=== PATIENT | female | born 1955 | race Hispanic/Latino ===

== ENCOUNTER 2018-08-07 13:03 | Outpatient (CLI) | payer BC ==
--- NOTE | 2018-08-08 09:12 | Magnetic Resonance Report ---
BILATERAL BREAST MRI WITHOUT AND WITH CONTRAST: 08/07/18 13:03:00 CLINICAL: Newly diagnosed left breast cancer. Status post needle biopsy on 07/17/18 at [facility]. 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 COMPARISON:Mammograms and ultrasound from [facility]. TECHNIQUE: Axial 1.0-mm T1 without, axial high resolution 2.0-mm T2 and axial 1.0-mm dynamic Vibrant high-resolution postcontrast T1 fat saturation sequences on a 1.5 Manda magnet. The examination was performed with an 8 channel dedicated [place] breast coil. Post processing with CAD and subtraction was performed on an [employer] Plus workstation. 16.0 cc of Multihance was injected without incident for the contrast portion of the exam. Consent was obtained prior to the administration of the contrast. FINDINGS: Right: Minimal background parenchymal enhancement. No mass or suspicious enhancement. No suspicious lymph nodes. Left: Minimal background parenchymal enhancement. The known cancer is an irregular spiculated enhancing mass at 3 o'clock 6.0 cm from the nipple and 6.6 cm from the chest wall. It measures 2.1 x 1.6 x 1.3 cm and demonstrates heterogeneous enhancement with mixed kinetics, 226% peak enhancement, 54% type I persistent, 38% type II plateau and 8% type III washout waveforms. A second suspicious mass is located slightly lateral and posterior within 1 cm of the cancer and there is a linear nonenhancing band of tissue connecting it with the cancer. Lesion 2 measures 3.9 x 1.9 x 1.4 mm and demonstrates a similar enhancement pattern to the cancer. Lesion 3 is a focus of non-Mass enhancement at 3 o'clock 1.9 cm from the nipple and 10.7 cm from the chest wall. It is located approximately 3.5 cm anterior to the cancer within a band of nonenhancing tissue that runs from the cancer to the nipple. No other mass or suspicious enhancement. No suspicious left axillary or left internal mammary lymph nodes. IMPRESSION: 1. A 2.1 cm known left breast cancer at 3 o'clock and 2 additional suspicious lesions as described above. Both of these lesions are too small to biopsy with MRI. Recommend targeted ultrasound to determine if these lesions could be sampled using ultrasound guidance. 2. Negative right breast. 3. No suspicious lymph nodes. RIGHT BI-RADS 1 - - Negative LEFT BI-RADS 6 -- Known Cancer
== END 2018-08-07 13:04 | disposition home or self-care (01) ==
LOC: SPVIMAG 13:03
PROVIDERS: ATTEND Surgery
DX: C50.412 Malignant neoplasm of upper-outer quadrant of left female breast (principal)
CPT/HCPCS: A9577; C8908; 77049

== ENCOUNTER 2018-08-28 14:12 | Outpatient (CLI) | payer BC ==
--- NOTE | 2018-08-28 16:06 | Ultrasound Report ---
TARGETED LEFT BREAST ULTRASOUND: 08/28/18 14:12:00 CLINICAL: Known left breast cancer in 2 additional suspicious lesions on recent MRI. COMPARISON: 08/07/18 MRI FINDINGS: Ultrasound of the left breast fail to demonstrate additional lesions to correlate with the MRI findings. IMPRESSION: Known left breast cancer at 3 o'clock 6 cm from the nipple. No additional lesion identified by ultrasound. BI-RADS 6 -- Known Cancer
== END 2018-08-28 14:13 | disposition home or self-care (01) ==
LOC: SPVWC 14:12
PROVIDERS: ATTEND Surgery
DX: C50.012 Malignant neoplasm of nipple and areola, left female breast (principal)